=== PATIENT | female | born 1960 | race African-American/Black ===

== ENCOUNTER → 2017-11-07 | Outpatient (CLI) | payer OTHER ==
--- NOTE | 2017-11-07 12:01 | Diagnostic Imaging Report ---
PROCEDURE:KNEE THREE VIEWS BILATERAL COMPARISON:None. INDICATIONS:BILATERAL KNEE PAIN FINDINGS: There is no fracture or dislocation. Severe tricompartmental degenerative narrowing is present bilaterally. Small right joint effusion. Hypertrophic osteophytes from the anterior superior aspect of the femurs bilaterally with soft tissue osseous calcification extending in the prepatellar ligament on the left. Marked medial compartment narrowing is present. Diffuse bony osteopenia is noted. CONCLUSION: Severe tricompartmental degenerative changes of the knees. Pj Arriaga D.O. Dictated by: Pj Arriaga D.O. on 11/07/2017 at 12:09 Electronically approved by: Pj Arriaga D.O. on 11/07/2017 at 12:09
== END ==
LOC: RAD 09:23
PROVIDERS: ATTEND Specialist
DX: M25.562 Pain in left knee (principal); M25.561 Pain in right knee